=== PATIENT | female | born 1975 | race Caucasian/White ===

== ENCOUNTER → 2022-11-07 | Outpatient (CLI) | payer OTHER ==
[~2022-11-07] MED LIST: ALBU90OI INH; AMOCLA500 PO; AMOX500 PO; AZIT250 PO; CLAR250 PO; CYCL10 PO; GUAPHELA PO; HYDACE5 PO; HYDGUAL120 PO; IBUP800 PO; MECL25 PO; NAPR500 PO; OXYACE5T PO; RXHYDGUAS PO; RXSULTRIDS PO; SULTRIDS PO
[2022-11-13 14:11] LABS: HPV APTIMA Negative (Negative)
== END ==
LOC: LAB SHORT 17:03 → LAB 17:03
PROVIDERS: Registered Nurse
DX: Z01.419 Encounter for gynecological examination (general) (routine) without abnormal findings (principal)
CPT/HCPCS: 87624; 88175

== ENCOUNTER 2023-12-18 19:41 | Emergency (ER) | payer OTHER ==
[~2023-12-18] VITALS: Ht 167.6 cm; Wt 93.0 kg
[2023-12-18 20:05] VITALS: BP 120/77
[2023-12-18] MEDS ORDERED: Cephalexin Monohydrate 500 MG Cap PO ONE (20:50)
[2023-12-18] MEDS ORDERED: CEPH500 PO (20:50)
== END 2023-12-18 21:07 | disposition home or self-care (01) ==
LOC: ER 19:41
DX: L02.416 Cutaneous abscess of left lower limb (principal); Z88.5 Allergy status to narcotic agent; Z88.8 Allergy status to other drugs, medicaments and biological substances
CPT/HCPCS: 10060; 99283-25; A9270

== ENCOUNTER 2024-10-05 06:17 | Emergency (ER) | payer OTHER ==
[~2024-10-05] VITALS: Ht 167.6 cm; Wt 83.9 kg
[~2024-10-05 06:17] MED LIST changes: +CEPH500 PO
[2024-10-05] MEDS ORDERED: Amoxicillin/Clavulanate K 875 MG Tab PO ONE (07:10)
[2024-10-05] MEDS ORDERED: Naproxen 250 MG TAB PO ONE (07:10)
[2024-10-05] MEDS ORDERED: Dexamethasone Sod Phos 10 MG/ML 1ML VIAL PO ONE (07:10)
[2024-10-05] MEDS ORDERED: NAPR500 PO (07:18)
[2024-10-05] MEDS ORDERED: AMOCLA875 PO (07:18)
[2024-10-05 07:30] VITALS: BP 132/98
== END 2024-10-05 07:37 | disposition home or self-care (01) ==
LOC: ER 06:17
DX: K02.9 Dental caries, unspecified (principal); Z88.5 Allergy status to narcotic agent; Z88.8 Allergy status to other drugs, medicaments and biological substances
CPT/HCPCS: 99282; A9270; J1100